=== PATIENT | female | born 1975 | race Caucasian/White ===

== ENCOUNTER → 2017-07-28 | Outpatient (CLI) | payer OTHER ==
--- NOTE | 2017-07-28 16:08 | US ---
EXAMINATION TYPE: US thyroid st tissue head/neck DATE OF EXAM: 07/28/2017 COMPARISON: NONE CLINICAL HISTORY: E04.1 thyroid nodule. Patient on thyroid medication, hypothyroidism, doctor felt charlee mp left neck GLAND SIZE: Right Lobe: 3.6 x 1.4 x 1.4 cm Overall Parenchyma: heterogenous Left Lobe: 4.2 x 1.2 x 1.5 cm Overall Parenchyma: heterogeneous Isthmus Thickness: 0.3 cm NODULES RIGHT: # of nodules measured on right: 0 LEFT: # of nodules measured on left: 1 1. 2.0 X 1.1 x 1.9 cm hypoechoic complex cystic nodule at the lower pole with well-defined margins; . This nodule is wider than tall and shows no intranodular vascularity. Prior size: no prior ISTHMUS: # of nodules measured in the isthmus: 0 IMPRESSION: Complex cystic area inferior left thyroid lobe, difficult to distinguish if directly connected to thy roid. CT neck could be performed for further evaluation and localization.
== END | disposition home or self-care (01) ==
LOC: RADUSWWP 15:30
PROVIDERS: ATTEND Obstetrics & Gynecology
DX: E07.9 Disorder of thyroid, unspecified (principal)
CPT/HCPCS: 36415; 76536; 84439; 84443

== ENCOUNTER → 2017-08-17 | Outpatient (CLI) | payer BC ==
--- NOTE | 2017-08-17 19:53 | CT ---
EXAMINATION TYPE: CT soft tissue neck w con DATE OF EXAM: 08/17/2017 7:42 PM COMPARISON: NONE HISTORY: Patient has no complaints at time of study. Follow up study to abnormal US showing possible thyroid nodules. CT DLP: 420.6 mGycm Automated exposure control for dose reduction was used. CONTRAST: CT scan of the neck is performed following with IV Contrast, patient injected with 100 mL of Omnipaqu e 300. Axial images are obtained, coronal and sagittal reformatted images are reviewed. FINDINGS: There is normal branching pattern of the great vessels on the aortic arch. There is normal contrast opacification of carotid arteries and jugular veins. There is arterial flow in the vertebral arteries. There is no evidence of a pharyngeal mass. Epiglottis appears normal. Tonsils and adenoids are within normal limits. Submandibular salivary glands appear normal. Parotid glands are symmetric. There are anterior and posterior triangle cervical lymph nodes which measure less than 1 cm. There is a 19 x 15 mm thin-walled cyst that appears to be arising from the lower pole of the left thy roid lobe. The thyroid gland is otherwise unremarkable. IMPRESSION: Low-density oval-shaped mass on the lower pole left thyroid lobe is consistent with a be nign cyst that is unchanged compared to ultrasound of 07/28/2017. Nonspecific anterior and posterior c ervical small lymph nodes.
== END ==
LOC: RADCTMAIN 19:22
PROVIDERS: ATTEND Surgery
DX: E07.89 Other specified disorders of thyroid (principal)
CPT/HCPCS: 70491; Q9967

== ENCOUNTER → 2017-08-27 | Outpatient (CLI) | payer BC ==
[2017-08-27 11:00] LABS: Basophils # (A) 0.1 k/uL (0-0.2); Basophils % (A) 1 %; CHCM 32.6; Eosinophils # (A) 0.4 k/uL (0-0.7); Eosinophils % (A) 4 %; HCT 38.6 % (34.0-46.0); HDW 2.42; HGB 13.8 gm/dL (11.4-16.0); Luc # (Auto) 0.35; Luc % (Auto) 4; Lymphocytes # (A) 1.8 k/uL (1.0-4.8); Lymphocytes % (A) 21 %; MCH 34.2 pg (25.0-35.0); MCHC 35.8 g/dL (31.0-37.0); MCV 95.5 fL (80.0-100.0); Mean Platelet Volume 7.5; Monocytes # (A) 0.8 k/uL (0-1.0); Monocytes % (A) 9 %; Neutrophils # (A) 5.1 k/uL (1.3-7.7); Neutrophils % (A) 61 %; RBC 4.04 m/uL (3.80-5.40); RDW 15.3 % (11.5-15.5); WBC 8.4 k/uL (3.8-10.6); WBC (Perox) 7.94
[2017-08-27 11:19] LABS: Anion Gap 6 mmol/L; Blood Urea Nitrogen 14 mg/dL (7-17); Calcium 8.7 mg/dL (8.4-10.2); Carbon Dioxide 25 mmol/L (22-30); Chloride 106 mmol/L (98-107); Glucose 98 mg/dL (74-99); Non-African American GFR(MDRD) >60 (>60 ml/min/1.73 sqM); Potassium 4.4 mmol/L (3.5-5.1); Sodium 137 mmol/L (137-145)
== END | disposition home or self-care (01) ==
LOC: LABPAT 10:32
PROVIDERS: ATTEND Obstetrics & Gynecology
DX: Z01.812 Encounter for preprocedural laboratory examination (principal)
CPT/HCPCS: 36415; 80048; 85025; 86850; 86900; 86901

== ENCOUNTER 2017-09-22 11:58 | Day surgery (SDC) | payer BC ==
[2017-09-22 12:51] VITALS: BP 146/77; PULSE 83; RESP 20; TEMP 97.8
[2017-09-22] MEDS ORDERED: ALPRAZolam 0.5 MG TAB PO STA (12:54)
--- NOTE | 2017-09-22 16:09 | US ---
EXAMINATION TYPE: US FNA thyroid DATE OF EXAM: 09/22/2017 COMPARISON: NONE HISTORY: Thyroid nodule, E04.1 Maximal barrier technique was utilized. Ultrasound using sterile technique. The skin overlying the no dule was localized with ultrasound and the overlying skin prepped and draped. Lidocaine used for loca l anesthesia. 1 pass with a 23-gauge needle made into the cystic nodule under ultrasound guidance. As pirated specimen consisting of 1 to 2 cc of straw-colored fluid and submitted to cytology. Following the procedure hemostasis achieved. No immediate complication IMPRESSION: Status post ultrasound-guided fine-needle aspiration of thyroid nodule, pathology pending .
== END 2017-09-22 14:30 | disposition home or self-care (01) ==
LOC: RADPROMAIN 11:58
PROVIDERS: ATTEND Surgery
DX: E04.1 Nontoxic single thyroid nodule (principal)
CPT/HCPCS: 10022; 76942; 88305

== ENCOUNTER 2021-09-09 10:34 | Day surgery (SDC) | payer BC, OTHER ==
[2021-09-07 17:52] VITALS: BMI 41.3
[~2021-09-09 10:34] MED LIST: LACTATED RINGERS 1,000 ML IV SCH; LIDOCAINE 1% (10MG/ML) FOR IV START INTRADERMA PRN
[2021-09-09 11:13] VITALS: TEMP 99.1
[2021-09-09] MEDS ORDERED: PROPOFOL 10 MG/ML 20 ML VIAL IV ONE (12:06)
[2021-09-09] MEDS ORDERED: LIDOCAINE 1% INJ 10MG/ML (20 ML MDV) ONE (12:06)
--- NOTE | 2021-09-09 12:26 | P.PCN ---
Date of Procedure: 09/09/21 Procedure(s) Performed: Brief history: Patient is a pleasant 45-year-old white female scheduled for an elective upper endoscopy as well as colonoscopy as a part of evaluation of iron deficiency anemia. She denies any GI symptoms. Procedure performed: Esophagogastroduodenoscopy with biopsy Colonoscopy and polypectomy Preoperative diagnosis: Iron deficiency anemia. Anesthesia: MAC Procedure: After informed consent was obtained from the patient was brought into the endoscopy unit and IV sedation was administered by anesthesia under continuous monitoring. Initially upper endoscopy was done. The Olympus GF 160 video endoscope was inserted inserted into the mouth and esophagus intubated without a ny difficulty and was gradually advanced into the stomach and duodenum and carefully examined. The bulb and second part of the duodenum appeared normal. The scope was then withdrawn into the stomach adequately insufflated with air and upon careful examination the antrum had mild patchy area of centimeter prepyloric area which was biopsied. Mucosa of the body, cardia and fundus appeared normal. The scope was then withdrawn into the esophagus. The GE junction was located at 36 cm to the incisors. small sliding type hiatal hernia noted the GE junction appeared slightly irregular with a 2 mm tongue of Bautista's appearing mucosa proximal to the GE junction which was biopsied.Rest of the esophagus appeared normal. Patient tolerated the procedure well. At this time the patient continued to remain sedation. Initial digital rectal examination was normal. Olympus CF 160 video colonoscope was then inserted into the rectum and gradually advanced to the cecum without any difficulty. Careful examination was performed as the scope was gradually being withdrawn. The prep was excellent. The cecum, ascending colon, transverse colon, descending colon, sigmoid colon and rectum appeared normal. and distal rectum there was a 5 mm sessile polyp that was removed by snare polypectomy. Retroflexion was performed in the rectum and no lesions were noted. Patient tolerated the procedure well. Impression: 1. Upper endoscopy revealed small hiatal hernia, mild antral gastritis but no evidence of esophagitis or peptic ulcer disease. 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 Colonoscopy revealed 5-6 mm distal rectal polyp status post polypectomy Recommendations: Findings of this examination were discussed with the patient as well as her family. She was advised to follow with the biopsy results. if the biopsy reveals adenoma she can have a repeat colonoscopy in 5 years
[2021-09-09 12:37] VITALS: RESP 16
[2021-09-09 12:55] VITALS: BP 125/74; PULSE 79
== END 2021-09-09 13:05 | disposition home or self-care (01) ==
LOC: ORWHC2ENDO 10:34
PROVIDERS: ATTEND Internal Medicine Gastroenterology
DX: K31.9 Disease of stomach and duodenum, unspecified (principal); K21.00 Gastro-esophageal reflux disease with esophagitis, without bleeding; D50.9 Iron deficiency anemia, unspecified; K22.70 Barrett's esophagus without dysplasia; K44.9 Diaphragmatic hernia without obstruction or gangrene; E07.9 Disorder of thyroid, unspecified; F41.9 Anxiety disorder, unspecified; R51.9 Headache, unspecified; K14.1 Geographic tongue; Z79.1 Long term (current) use of non-steroidal anti-inflammatories (NSAID); Z98.51 Tubal ligation status; Z90.49 Acquired absence of other specified parts of digestive tract; Z98.890 Other specified postprocedural states; Z97.2 Presence of dental prosthetic device (complete) (partial); Z79.890 Hormone replacement therapy; Z79.899 Other long term (current) drug therapy; Z91.09 Other allergy status, other than to drugs and biological substances
CPT/HCPCS: 88305; 45385; 43239; J2001; J2704

== ENCOUNTER → 2022-08-02 | Outpatient (CLI) | payer BC ==
[2022-08-02 11:16] VITALS: BMI 44.8
== END ==
LOC: BARWHC3 08:49
PROVIDERS: ATTEND Surgery Plastic and Reconstructive Surgery
DX: E66.01 Morbid (severe) obesity due to excess calories (principal); Z68.41 Body mass index [BMI] 40.0-44.9, adult
CPT/HCPCS: 97804

== ENCOUNTER → 2022-09-08 | Outpatient (CLI) | payer BC ==
[2022-09-08 18:12] LABS: Basophils # (A) 0.04 X 10*3/uL (0.00-0.10); Basophils % (A) 0.5 %; Eosinophils % (A) 3.6 %; HCT 40.2 % (37.2-46.3); HGB 13.5 g/dL (12.0-15.0); Immature Grans, Automated 0.5 %; Lymphocytes # (A) 1.35 X 10*3/uL (0.90-5.00); Lymphocytes % (A) 16.2 %; MCH 29.9 pg (27.0-32.0); MCHC 33.6 g/dL (32.0-37.0); MCV 89.1 fL (80.0-97.0); Mean Platelet Volume 10.3 fL (9.5-12.2); Monocytes # (A) 0.54 X 10*3/uL (0.20-1.00); Monocytes % (A) 6.5 %; NRBC Per 100 WBC 0 /100 WBCS (0.0-0.0); Neutrophils # (A) 6.05 X 10*3/uL (1.80-7.70); Neutrophils % (A) 72.7 %; Platelet Count 313 X 10*3/uL (140-440); RBC 4.51 X 10*6/uL (4.10-5.20); RDW 12.7 % (11.5-14.5); WBC 8.32 X 10*3/uL (4.50-10.00)
[2022-09-08 18:52] LABS: African American GFR (CKD) 119.6 (60.0-200.0); Albumin 3.9 g/dL (3.8-4.9); Albumin/Globulin Ratio 1.34 (1.60-3.17); Anion Gap 11.4 mmol/L (10.00-18.00); BUN/Creat Ratio 16.14 Ratio (12.00-20.00); Blood Urea Nitrogen 11.3 mg/dL (9.0-27.0); Calcium 8.7 mg/dL (8.7-10.3); Carbon Dioxide 22.6 mmol/L (20.0-27.5); Globulin 2.9 g/dL (1.6-3.3); Non-African American GFR(CKD) 103.2 (60.0-200.0); Potassium 4.1 mmol/L (3.5-5.5); Total Bilirubin 0.3 mg/dL (0.30-1.20); Total Protein 6.8 g/dL (6.2-8.2)
== END | disposition home or self-care (01) ==
LOC: LABPAT 11:06
PROVIDERS: ATTEND Surgery Plastic and Reconstructive Surgery
DX: Z01.812 Encounter for preprocedural laboratory examination (principal)
CPT/HCPCS: 36415; 80053; 85025

== ENCOUNTER 2022-09-13 10:20 | Inpatient (IN) | payer BC ==
--- NOTE | 2022-09-13 05:24 | P.GSHP ---
History of Present Illness H&P Date: 09/13/22 CHIEF COMPLAINT: Paraesophageal hiatal hernia with gastroesophageal reflux disease. HISTORY OF PRESENT ILLNESS: The patient is a 47-year-old female who presents with paraesophageal hiatal hernia. She has completed upper endoscopy workup. Now she presents for surgical intervention. PAST MEDICAL HISTORY: Please see list. PAST SURGICAL HISTORY: Please see list. MEDICATIONS: Please see list. ALLERGIES: Please see list. SOCIAL HISTORY: No illicit drug use FAMILY HISTORY: No reports of Crohn disease or ulcerative colitis. REVIEW OF ORGAN SYSTEMS: CONSTITUTIONAL: No reports of fevers or chills. GI: Denies any blood in stools or constipation. PHYSICAL EXAM: VITAL SIGNS: Stable GENERAL: Well-developed pleasant and in no acute distress. HEENT: No scleral icterus. Extraocular movements grossly intact. Moist buccal mucosa. NECK: Supple without lymphadenopathy. CHEST: Unlabored respirations. Equal bilateral excursions. CARDIOVASCULAR: Regular rate and rhythm. Distal 2+ pulses. ABDOMEN: Soft, nondistended. No peritoneal signs. MUSCULOSKELETAL: No clubbing, cyanosis, or edema. SKIN: Well-perfused. Good skin turgor. ASSESSMENT: 1. Diaphragmatic paraesophageal hiatal hernia with severe gastroesophageal reflux disease. PLAN: 1. Recommend proceeding with a robotic paraesophageal hiatal hernia with possible mesh. 2. Benefits and risks of surgical intervention was discussed including possibility of open technique. 3. Inpatient hospitalization recommended of 2 nights 4. DVT prophylaxis. 5. Antibiotic prophylaxis. 6. She has also completed a very low caloric high-protein diet to address underlying hepatomegaly. 7. Non narcotic pain management including abdominal wall block described 8. Blood sugar glucose described. 9. Weight loss management described. Past Medical History Past Medical History: GERD/Reflux, Thyroid Disorder Additional Past Medical History / Comment(s): headaches, elevated BP-no rx, had recent stress test & echo, awaiting results, varicose vein, hx thrombosi s/superficial vein left leg March 2015, ANEMIA History of Any Multi-Drug Resistant Organisms: None Reported Past Surgical History: Cholecystectomy, Hysterectomy, Uterine Ablation Additional Past Surgical History / Comment(s): uterine ablation 2014 Past Anesthesia/Blood Transfusion Reactions: Postoperative Nausea & Vomiting (PONV) Smoking Status: Former smoker - Past Family History Father Family Medical History: AFIB, Deep Vein Thrombosis (DVT) Mother Family Medical History: Cancer Medications and Allergies Home Medications Medication Instructions Recorded Confirmed Type Levothyroxine Sodium [Synthroid] 200 mcg PO DAILY 03/09/15 09/09/22 History Ibuprofen [Motrin] 800 mg PO Q8HR PRN 10/20/15 09/09/22 History Omeprazole [PriLOSEC] 20 mg PO HS 08/29/17 09/09/22 History Desvenlafaxine Succinate [Pristiq] 100 mg PO HS 09/07/21 09/09/22 History Ferrous Sulfate [Feosol] 325 mg PO HS 09/07/21 09/09/22 History Ergocalciferol [Vitamin D2 (1250 50,000 unit PO WEEKLY 06/15/22 09/09/22 History Mcg = 14145 Iu)] Vitamin A 2,400 mcg PO DAILY 08/18/22 09/09/22 History Allergies Allergy/AdvReac Type Severity Reaction Status Date / Time adhesive tape AdvReac red skin Verified 09/09/22 10:19
[~2022-09-13 10:20] MED LIST changes: +ACETAMINOPHEN TAB 500 MG TAB PO PRN; +CHLORHEXIDINE GLUCONATE 15 ML CUP MUCOUS MEM PRN; +DEXAMETHASONE SOD PHOSPHATE 4 MG/ML 1 ML VIAL IV ONE; +ENOXAPARIN 40 MG/0.4 ML SYRINGE SQ PRN; +GABAPENTIN 300 MG CAP PO PRN; +HYDROmorphone 0.5 MG/0.5 ML SYRINGE IVP PRN; -LIDOCAINE 1% (10MG/ML) FOR IV START INTRADERMA PRN; +MELOXICAM 7.5 MG TAB PO PRN; +MIDAZOLAM 2 MG/2 ML VIAL IV PRN; +ONDANSETRON 4 MG/2 ML VIAL IVP ONE; +PANTOPRAZOLE 40 MG/10 ML VIAL IVP PRN; +SCOPOLAMINE 1 MG/72 HR PATCH TRANSDERM ONE; +SCOPOLAMINE 1 MG/72 HR PATCH TRANSDERM PRN; +ceFAZolin 3 GM in SODIUM CHLORIDE 0.9% 100 ML IVPB PRN
[2022-09-13] MEDS ORDERED: LACTATED RINGERS 1,000 ML IV ONE ×2 (12:29→15:01)
[2022-09-13] MEDS ORDERED: NEOSTIGMINE 1 MG/ML 10 ML VIAL ONE (13:25)
[2022-09-13] MEDS ORDERED: LIDOCAINE 2% INJ 20 MG/ML (2 ML VIAL) ONE (13:25)
[2022-09-13] MEDS ORDERED: HYDROmorphone (PF) 1 MG/ML ONE (13:25)
[2022-09-13] MEDS ORDERED: SUCCINYLCHOLINE CHLORIDE 200 MG/10 ML VIAL IV ONE (13:25)
[2022-09-13] MEDS ORDERED: ROCURONIUM 10 MG/ML (5 ML VIAL) IV ONE (13:25)
[2022-09-13] MEDS ORDERED: PROPOFOL 10 MG/ML 20 ML VIAL IV ONE (13:25)
[2022-09-13] MEDS ORDERED: fentaNYL (PF) 50 MCG/ML 2 ML AMP ONE (13:25)
[2022-09-13] MEDS ORDERED: GLYCOPYRROLATE 0.2 MG/ML 2 ML VIAL ONE (13:25)
[2022-09-13] MEDS ORDERED: LIDOCAINE 1%-EPI 1:100,000 20 ML VIAL SQ ONE (13:55)
[2022-09-13] MEDS ORDERED: diphenhydrAMINE 50 MG/ML 1 ML VIAL IVP PRN (15:48)
[2022-09-13] MEDS ORDERED: HYDROmorphone 1 MG/ML 1 ML SYRINGE IVP PRN (15:48)
[2022-09-13] MEDS ORDERED: NALOXONE 0.4 MG/ML 1 ML VIAL IV PRN (15:48)
[2022-09-13] MEDS ORDERED: SODIUM CHLORIDE 0.9% 1,000 ML IV ONE (15:53)
--- NOTE | 2022-09-13 15:58 | P.OP ---
Date of Procedure: 09/13/22 Description of Procedure: SURGEON: MANJIT GARCIA MD PREOPERATIVE DIAGNOSES: 1. Symptomatic paraesophageal diaphragmatic hiatal hernia. 2. Gastroesophageal reflux disease. 3. Hypothyroidism 4. Dysphagia 5. Depressive disorder 6. Generalized anxiety disorder 7. History of deep venous thrombosis. 8. Anemia 9. Osteoarthritis of the knee 10. Morbid obesity due to excess calories 11. Body mass index 43.0 to 42.0 POSTOPERATIVE DIAGNOSES: 1. Paraesophageal midline diaphragmatic hernia, 3 cm, with incarceration. 2. Gastroesophageal reflux disease. 3. Hypothyroidism 4. Dysphagia 5. Depressive disorder 6. Generalized anxiety disorder 7. History of deep venous thrombosis. 8. Anemia 9. Osteoarthritis of the knee 10. Morbid obesity due to excess calories 11. 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 Robotic-assisted da Nir Xi laparoscopic repair of incarcerated paraesophageal hiatal hernia, 4 x 3 cm, with [place] Biopatch A 8 x 8 cm. 2. Excision of mediastinal mass, 4 x 5 cm 3. Intraoperative esophagogastroduodenoscopy 4. Placement of 56-Arabic bougie for esophageal dysmotility ANESTHESIA: General with local anesthetic. ESTIMATED BLOOD LOSS: 5 mL SPECIMENS REMOVED: None COMPLICATIONS: None. Condition: stable Disposition: floor FINDINGS: 1. Midline incarcerated paraesophageal hiatal hernia 4 x 3 cm 2. Intraoperative upper endoscopy confirms complete closure of hiatal hernia from Hill grade 3 to Hill grade 1 3. Intraesophageal length over 2 cm 4. Large mediastinal mass of distal esophagus resected, 4 x 5 cm INDICATIONS: The patient is a 47-year-old female who presents with gastroesophageal reflux disease poorly controlled despite medications, and a symptomatic diaphragmatic hiatal hernia. Preoperative workup including upper endoscopy demonstrated a sliding hiatal hernia. The patient completed an esophageal manometry. Given the severity of symptoms, the patient had elected for surgical intervention. Benefits and risks including bleeding, infection, recurrence, dysphagia, injury to the lung, need for further surgery was described at length. Informed consent was obtained. DESCRIPTION: The patient was brought into the operating room and placed in supine position. Preoperatively the patient had received heparin subcutaneously for DVT prophylaxis. After general induction, the abdomen was prepped and draped in standard sterile fashion. The patient had previously voided prior to coming to the operating room. Ioban draping was placed along the abdomen. A timeout protocol was confirmed with the surgical team, for which the patient's name, procedure to be performed including DVT prophylaxis with bilateral SCDs, and preoperative antibiotics were also confirmed. A robotic da Nir Xi system was prepped and primed. At 12 cm from the xiphoid to just below the umbilicus, proposed port sites were marked with indelible marker along the left axillary line, left mid-clavicular line with each ports were marked 10 cm from each other. A 5 mm 0 degrees laparoscopic trocar entry was performed along the left upper quadrant. The abdomen was insufflated to 15 mmHg pressure was tolerated well. Diagnostic laparoscopy demonstrated no injury to bowel, viscera, or mesentery. No injury had occurred to the small bowel or viscera. The liver was smooth consistent with two-week high-protein low-carb diet. Previous trochar sites from cholecystectomy were used. Next, one 8 mm robotic port was placed along the right upper abdomen. An 8-mm port was were placed along the right lateral lateral abdominal wall. The camera 8-mm port was maintained along the epigastrium. Another 12 mm port was placed along the left upper abdominal wall after exchanging the 5 mm port. Please note that the ports were placed at least 20 cm away from the target anatomy. Care was taken to check that each robotic arm were safely away from collision with the bed or the patient. At the epigastrium, a medium sized Shannon liver retractor was placed under direct visualization with the [employer] placed under the right shoulder of the patient. All robotic arms were used. The patient was repositioned in reverse Trendelenburg position at 21-degrees after lowering the bed. The robot was docked above the right side of the patient. Using a grasper for arm 3, a grasper for arm 1, including vessel sealer for arm 2, the robotic system was docked and primed as described. Instruments were i nterchanged by the reference assistant. I had sat at the console. The gastrohepatic ligament was cleaved using a vessel sealer. Next, the phrenoesophageal ligament was mobilized and the distal esophagus was mobilized circumferentially. The left and right crura was identified. Circumferentially, the hernia sac was excised and brought into the peritoneal cavity. Moderate dissection into the mediastinum was performed to release the esophagus into the abdominal cavity. The paraesophageal hiatal hernia sac was also incised and divided from the esophagus. A large mediastinal tumor was excised 4 x 5 cm. The mass was removed using an Endo Catch bag. Care was taken to avoid any gastrotomy. The measured defect was consistent with 4 cm axial length and 3 cm in width. After dissection, the distal esophagus of 2+ cm was brought into the abdominal cavity. Once the hiatus and crura was dissected, 2-0 VLOC nonabsorbable suture was placed to reapproximate the diaphragmatic hiatus posteriorly. To buttress the repair, a [place] Biopatch A was prepared along the back table and cut in half of a rubio-hole fashion as to reinforce the repair as an underlay. The mesh was placed along the crural repair and tagged using horizontal mattress sutures using 2-0 VLOC. I went to the head of the bed to perform intraoperative esophagogastroduodenoscopy and placement of a 56Fr bougie. The bougie was passed along the posterior oropharynx into the stomach to address pre-existing esophageal dysmotility for 2 minutes then removed. An Olympus gastroscope was passed through posterior oropharynx. Retroflexion of the scope confirmed a Hill grade 1 lower esophageal valve. 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 The stomach had been desufflated. No evidence of leaks were found of the esophagus or stomach. The GI tract with desufflated This concluded the endoscopic portion of the case. The robot was undocked from the patient. I re-scrubbed into the case. All instruments and pneumoperitoneum and specimens were evacuated from the abdominal cavity. Incisions were reapproximated using 4-0 Monocryl in an interrupted subcuticular fashion. Liquid glue was applied to the skin. Local anesthetic was infiltrated in all wounds for postop analgesia. At the end of the procedure, needle, sponge, and instrument count was verified correct by the surgical dental assistant. The patient had tolerated the procedure well and was taken to the postanesthesia unit in stable condition.
[2022-09-13] MEDS: KETOROLAC 15 MG/ML 1 ML VIAL IVP SCH ×2 (17:39→23:56)
[2022-09-13] MEDS: ONDANSETRON 4 MG/2 ML VIAL IVP SCH ×2 (17:39→23:57)
[2022-09-13] MEDS: DEXAMETHASONE SOD PHOSPHATE 4 MG/ML 1 ML VIAL IVP SCH ×2 (17:40→23:58)
[2022-09-13] MEDS: ACETAMINOPHEN IV (For NPO) 1,000 MG in EMPTY BAG 1 BAG IVPB SCH ×2 (17:40→23:55)
[2022-09-13] MEDS: 0.9% NACL WITH KCL 20 MEQ/L 1,000 ML IV SCH (17:40)
[2022-09-13] MEDS: SIMETHICONE 40 MG/0.6 ML DROPS 2,000 MG/30 ML BOTTLE PO SCH ×2 (17:54→23:56)
[2022-09-13] MEDS: HYOSCYAMINE ORAL DROPS 1.875 MG/15 ML BOTTLE PO SCH ×2 (17:55→23:56)
[2022-09-13] MEDS ORDERED: DEXAMETHASONE SOD PHOSPHATE 10 MG/ML 1 ML VIAL IVP ONE (20:00)
[2022-09-13] MEDS: ALBUTEROL NEBULIZED 2.5 MG/3 ML INHALATION SCH ×2 (20:05→20:12)
[2022-09-13] MEDS ORDERED: ceFAZolin 3 GM in SODIUM CHLORIDE 0.9% 100 ML IVPB SCH (21:00)
[2022-09-14] MEDS: 0.9% NACL WITH KCL 20 MEQ/L 1,000 ML IV SCH (01:41)
[2022-09-14] MEDS: ACETAMINOPHEN IV (For NPO) 1,000 MG in EMPTY BAG 1 BAG IVPB SCH ×2 (05:54→12:08)
[2022-09-14] MEDS: HYOSCYAMINE ORAL DROPS 1.875 MG/15 ML BOTTLE PO SCH ×2 (05:56→12:07)
[2022-09-14] MEDS: SIMETHICONE 40 MG/0.6 ML DROPS 2,000 MG/30 ML BOTTLE PO SCH ×2 (05:56→12:08)
[2022-09-14] MEDS: ONDANSETRON 4 MG/2 ML VIAL IVP SCH ×2 (05:57→12:07)
[2022-09-14] MEDS: KETOROLAC 15 MG/ML 1 ML VIAL IVP SCH ×2 (05:57→12:07)
[2022-09-14] MEDS: DEXAMETHASONE SOD PHOSPHATE 4 MG/ML 1 ML VIAL IVP SCH ×2 (05:57→12:07)
[2022-09-14] MEDS ORDERED: LEVOTHYROXINE 100 MCG TAB PO SCH (06:30)
[2022-09-14] MEDS: ALBUTEROL NEBULIZED 2.5 MG/3 ML INHALATION SCH ×3 (07:17→15:51)
[2022-09-14] MEDS ORDERED: 0.9% NACL WITH KCL 20 MEQ/L 1,000 ML IV SCH (08:00)
[2022-09-14] MEDS ORDERED: PANTOPRAZOLE 40 MG/10 ML VIAL IV SCH (09:00)
[2022-09-14] MEDS ORDERED: ENOXAPARIN 40 MG/0.4 ML SYRINGE SQ SCH (09:00)
[2022-09-14 10:56] LABS: Basophils # (A) 0 X 10*3/uL (0.00-0.10); Basophils % (A) 0 %; Eosinophils # (A) 0 X 10*3/uL (0.04-0.35); Eosinophils % (A) 0 %; HCT 42.9 % (37.2-46.3); HGB 13.9 g/dL (12.0-15.0); Immature Grans, Automated 0.5 %; Lymphocytes # (A) 0.68 X 10*3/uL (0.90-5.00); Lymphocytes % (A) 7.8 %; MCH 29.4 pg (27.0-32.0); MCHC 32.4 g/dL (32.0-37.0); MCV 90.9 fL (80.0-97.0); Monocytes # (A) 0.12 X 10*3/uL (0.20-1.00); Monocytes % (A) 1.4 %; NRBC Per 100 WBC 0 /100 WBCS (0.0-0.0); Neutrophils # (A) 7.86 X 10*3/uL (1.80-7.70); Neutrophils % (A) 90.3 %; Platelet Count 291 X 10*3/uL (140-440); RBC 4.72 X 10*6/uL (4.10-5.20); RDW 12.9 % (11.5-14.5)
[2022-09-14 11:28] LABS: African American GFR (CKD) 122.2 (60.0-200.0); Anion Gap 13.3 mmol/L (10.00-18.00); Blood Urea Nitrogen 9.5 mg/dL (9.0-27.0); Calcium 8.8 mg/dL (8.7-10.3); Carbon Dioxide 18.8 mmol/L (20.0-27.5); Non-African American GFR(CKD) 105.4 (60.0-200.0); Phosphorus 3.2 mg/dL (2.4-5.1); Potassium 4.8 mmol/L (3.5-5.5)
[2022-09-14 11:45] VITALS: BMI 42.0
--- NOTE | 2022-09-14 11:58 | FL ---
EXAMINATION TYPE: FL UGI DATE OF EXAM: 09/14/2022 COMPARISON: None HISTORY: Postop hiatal hernia repair TECHNIQUE: A single contrast UGI study is performed. FINDINGS: Contrast passes from the distal esophagus through the Felix fundoplication with moderately severe hesitancy. No extravasation of contrast is evident. No free air is noted during this examination. Overhead radiographs were obtained which are unremarkable. IMPRESSIONS: 1. Status post Felix fundoplication. No suspicious extravasation of contrast is evident. There is mo derately severe hesitancy passing through the gastroesophageal junction.
[2022-09-14 14:49] VITALS: BP 135/84; PULSE 72; RESP 18; TEMP 97.8
--- NOTE | 2022-09-14 15:47 | P.DS ---
Providers Date of admission: 09/13/22 11:25 Expected date of discharge: 09/14/22 Attending physician: Magalis Rubi Primary care physician: Gennaro She [facility] Hospital Course: Discharge diagnosis 1. Paraesophageal midline diaphragmatic hernia, 3 cm, with incarceration. 2. Gastroesophageal reflux disease. 3. Hypothyroidism 4. Dysphagia 5. Depressive disorder 6. Generalized anxiety disorder 7. History of deep venous thrombosis. 8. Anemia 9. Osteoarthritis of the knee 10. Morbid obesity due to excess calories 11. 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 Patient is status post Robotic-assisted da Nir Xi laparoscopic repair of incarcerated paraesophageal hiatal hernia with mesh and excision of mediastinal mass. Patient reports her pain is controlled. She is tolerating diet. Her upper GI shows no suspicious extravasation of contrast is evident. There is moderately severe hesitancy passing through the GE junction. Patient denies any difficulty swallowing. Patient is afebrile. She is up and ambulat ing. She is having flatus. She is stable for discharge. Physician Animal Pathologist note has been reviewed by physician. Signing provider agrees with the documented findings, assessment, and plan of care. Patient Condition at Discharge: Stable Plan - Discharge Summary Discharge Rx Participant: Yes New Discharge Prescriptions: New bisacodyL [Dulcolax] 5 mg PO DAILY PRN #10 tab PRN Reason: Constipation Simethicone 40 mg/0.6 ml Drops [Mylicon Drops] 40 mg PO PCHS PRN #30 ml PRN Reason: Gas Omeprazole [PriLOSEC] 40 mg PO DAILY #30 cap Acetaminophen Tab [Tylenol] 1,000 mg PO Q6HR PRN #30 tablet PRN Reason: Pain Ondansetron Odt [Zofran Odt] 4 mg PO Q8HR PRN #9 tab PRN Reason: Nausea Continue Levothyroxine Sodium [Synthroid] 200 mcg PO DAILY Ibuprofen [Motrin] 800 mg PO Q8HR PRN PRN Reason: Pain Desvenlafaxine Succinate [Pristiq] 100 mg PO HS Discontinued Omeprazole [PriLOSEC] 20 mg PO HS Ferrous Sulfate [Feosol] 325 mg PO HS Ergocalciferol [Vitamin D2 (1250 Mcg = 50926 Iu)] 50,000 unit PO WEEKLY Vitamin A 2,400 mcg PO DAILY Discharge Medication List Levothyroxine Sodium [Synthroid] 200 mcg PO DAILY 03/09/15 [History] Ibuprofen [Motrin] 800 mg PO Q8HR PRN 10/20/15 [History] Desvenlafaxine Succinate [Pristiq] 100 mg PO HS 09/07/21 [History] Acetaminophen Tab [Tylenol] 1,000 mg PO Q6HR PRN #30 tablet 09/14/22 [Rx] Omeprazole [PriLOSEC] 40 mg PO DAILY #30 cap 09/14/22 [Rx] Ondansetron Odt [Zofran Odt] 4 mg PO Q8HR PRN #9 tab 09/14/22 [Rx] Simethicone 40 mg/0.6 ml Drops [Mylicon Drops] 40 mg PO PCHS PRN #30 ml 09/14/22 [Rx] bisacodyL [Dulcolax] 5 mg PO DAILY PRN #10 tab 09/14/22 [Rx] Follow up Appointment(s)/Referral(s): Magalis Rubi MD [STAFF PHYSICIAN] - 09/23/22 11:30 am Activity/Diet/Wound Care/Special Instructions: Wear abdominal binder at all times for comfort. No lifting over 4 pounds in 4 weeks You May shower. No bath tub soaks for two weeks Use Tylenol and ibuprofen scheduled for the next 24-48 hours for best pain relief. Use ice along incisions for the today to prevent swelling. Continue on bariatric liquid diet. No straws or carbonated beverages Hold on taking any vitamins until seen by surgeon Discharge Disposition: HOME SELF-CARE
[2022-09-15] MEDS ORDERED: bisacodyL 5 MG TABLET.DR PO PRN (08:00)
--- NOTE | 2022-09-21 15:41 | CDI ---
Documentation Clarification Form Date: 09/21/2022 01:38:00 PM From: Catarina Katz Admit Date: 09/13/2022 11:25:00 AM Patient Name: Uma Dorsey Visit Number: [id number] Discharge Date: 09/14/2022 05:28:00 PM ATTENTION: The Clinical Documentation Specialists (CDI) and [facility] Coding Staff appreciate your assistance in clarifying documentation. Please respond to the clarification below the line at the bottom and electronically sign. The CDI & [facility] Coding staff will review the response and follow-up if needed. Please note: Queries are made part of the Legal Health Record. If you have any questions, please contact the author of this message via ITS. Dr. Magalis Rubi The final diagnosis of the pathology report states "Reactive lymph node and benign fibroadipose tissue, compatible with lipoma". Coding guidelines do not allow coding professionals to code based on pathology results; therefore, clarification is requested. History/risk factors: paraesophageal diaphragmatic hiatal hernia, GERD, Hypothyroidism, Dysphagia, Distal esophageal mediastinal mass Clinical Indicators: path report- mediastinal lipoma Treatment: Excision of mediastinal mass with robotic assisted laparoscopic hiatal hernia repair Please clarify if you agree with the pathology report diagnosis of Mediastinal lipoma: [ X ] Yes [ ] No [ ] Other (please specify) [ ] Unable to determine KM 09/22/[address] [facility]
== END 2022-09-14 17:28 | disposition home or self-care (01) | DRG 327 ==
LOC: 2ORMAIN 11:25 → 4SSUR 15:22
PROVIDERS: ADMIT Surgery Plastic and Reconstructive Surgery; ATTEND Surgery Plastic and Reconstructive Surgery
PROC: 8E0W4CZ Robotic Assisted Procedure of Trunk Region, Percutaneous Endoscopic Approach (ICD-10-PCS; principal; 2022-09-13 12:50)
PROC: 0WBC4ZZ Excision of Mediastinum, Percutaneous Endoscopic Approach (ICD-10-PCS; principal; 2022-09-13 12:50)
PROC: 0D738ZZ Dilation of Lower Esophagus, Via Natural or Artificial Opening Endoscopic (ICD-10-PCS; principal; 2022-09-13 12:50)
PROC: 0BUT4JZ Supplement Diaphragm with Synthetic Substitute, Percutaneous Endoscopic Approach (ICD-10-PCS; principal; 2022-09-13 12:50)
DX: K44.0 Diaphragmatic hernia with obstruction, without gangrene (principal); Z68.41 Body mass index [BMI] 40.0-44.9, adult; K21.9 Gastro-esophageal reflux disease without esophagitis; I10 Essential (primary) hypertension; I83.90 Asymptomatic varicose veins of unspecified lower extremity; D64.9 Anemia, unspecified; D17.79 Benign lipomatous neoplasm of other sites; K31.4 Gastric diverticulum; E03.9 Hypothyroidism, unspecified; F32.A Depression, unspecified; F41.1 Generalized anxiety disorder; M17.10 Unilateral primary osteoarthritis, unspecified knee; E66.01 Morbid (severe) obesity due to excess calories; K22.4 Dyskinesia of esophagus; Z86.718 Personal history of other venous thrombosis and embolism; Z87.891 Personal history of nicotine dependence; Z79.890 Hormone replacement therapy; Z79.899 Other long term (current) drug therapy; Z91.048 Other nonmedicinal substance allergy status
CPT/HCPCS: 74240; 80051; 82310; 82565; 83735; 84100; 84520; 85025; 86850; 86900; 86901; 88304

== ENCOUNTER → 2022-09-16 | Outpatient (CLI) | payer BC ==
[~2022-09-16] MED LIST changes: -ACETAMINOPHEN TAB 500 MG TAB PO PRN; -CHLORHEXIDINE GLUCONATE 15 ML CUP MUCOUS MEM PRN; +DEXAMETHASONE SOD PHOSPHATE 10 MG/ML 1 ML VIAL IM STA; -DEXAMETHASONE SOD PHOSPHATE 4 MG/ML 1 ML VIAL IV ONE; -ENOXAPARIN 40 MG/0.4 ML SYRINGE SQ PRN; -GABAPENTIN 300 MG CAP PO PRN; -HYDROmorphone 0.5 MG/0.5 ML SYRINGE IVP PRN; -LACTATED RINGERS 1,000 ML IV SCH; -MELOXICAM 7.5 MG TAB PO PRN; -MIDAZOLAM 2 MG/2 ML VIAL IV PRN; -ONDANSETRON 4 MG/2 ML VIAL IVP ONE; -PANTOPRAZOLE 40 MG/10 ML VIAL IVP PRN; -SCOPOLAMINE 1 MG/72 HR PATCH TRANSDERM ONE; -SCOPOLAMINE 1 MG/72 HR PATCH TRANSDERM PRN; -ceFAZolin 3 GM in SODIUM CHLORIDE 0.9% 100 ML IVPB PRN
--- NOTE | 2022-09-16 12:36 | P.BASOAP ---
Subjective Progress Note Date: 09/16/22 Clinically doing well. Reports expected dysphagia due to swelling. Decadron ordered. Follow-up in one week described. Also follow bariatric diet postop Assessment/Plan Plan: Date: Initial Weight: Initial BMI: Current Weight: Current BMI: Type of Surgery: Total Volume in Band: Previous Volume: Volume Removed: Volume Added: Band Size:
[2022-09-16 12:52] VITALS: BP 147/90; PULSE 76; RESP 16; TEMP 98.5
== END ==
LOC: BARWHC3 11:35
PROVIDERS: ATTEND Surgery Plastic and Reconstructive Surgery
DX: E66.01 Morbid (severe) obesity due to excess calories (principal); Z91.048 Other nonmedicinal substance allergy status; F17.200 Nicotine dependence, unspecified, uncomplicated
CPT/HCPCS: 99211; 96372; J1100

== ENCOUNTER → 2022-09-22 | Outpatient (CLI) | payer BC ==
[2022-09-22 13:15] VITALS: BP 113/83; PULSE 92; TEMP 98.5; BMI 41.3
--- NOTE | 2022-09-22 14:16 | P.BASOAP ---
Subjective Progress Note Date: 09/22/22 She dysphagia. She is status post hiatal hernia. On Oct 17, re-check for GERD prior to sleeve or bypass. She has dysphagia. Recommend upper endoscopy with dilation. Trial of soft diet on POD 12 advised. No more GERD. Continue bariatric diet. Objective - Vital Signs Vital signs: Vital Signs Temp 98.5 F 09/22/22 13:09 Pulse 92 09/22/22 13:09 Resp BP 113/83 09/22/22 13:09 Pulse Ox FiO2 Intake & Output 09/21/22 09/22/22 09/22/22 18:59 06:59 18:59 Weight 126.099 kg Assessment/Plan Plan: Date: 09/22/22 Initial Weight: Initial BMI: Current Weight: 126.099 kg Current BMI: 41.3 Type of Surgery: Total Volume in Band: Previous Volume: Volume Removed: Volume Added: Band Size:
--- NOTE | 2022-10-08 12:20 | P.PN ---
Progress Note - Text Progress Note Date: 10/08/22 To Whom It May Concern: Uma Dorsey is under my general surgical care. She may return to work without restrictions 10/18/22 pending clearance. Regards, Magalis Rubi M.D., FACS
--- NOTE | 2022-10-11 08:08 | P.PN ---
Progress Note - Text Progress Note Date: 10/11/22 To Whom It May Concern: Uma Dorsey is under my general surgical care. She may return to work without restrictions 10/11/22. Regards, Magalis Rubi M.D., FACS
== END ==
LOC: BARWHC3 12:53
PROVIDERS: ATTEND Surgery Plastic and Reconstructive Surgery
DX: Z48.815 Encounter for surgical aftercare following surgery on the digestive system (principal); E66.01 Morbid (severe) obesity due to excess calories; Z68.41 Body mass index [BMI] 40.0-44.9, adult; F17.200 Nicotine dependence, unspecified, uncomplicated; Z91.048 Other nonmedicinal substance allergy status
CPT/HCPCS: 99211

== ENCOUNTER → 2023-02-14 | Outpatient (CLI) | payer BC ==
[2023-02-14 16:51] LABS: African American GFR (CKD) 100.7 (60.0-200.0); Albumin 4.2 g/dL (3.8-4.9); Albumin/Globulin Ratio 1.32 (1.60-3.17); BUN/Creat Ratio 18.71 Ratio (12.00-20.00); Blood Urea Nitrogen 15.1 mg/dL (9.0-27.0); Calcium 9.4 mg/dL (8.7-10.3); Carbon Dioxide 23.3 mmol/L (20.0-27.5); Globulin 3.2 g/dL (1.6-3.3); Non-African American GFR(CKD) 86.9 (60.0-200.0); Potassium 4.6 mmol/L (3.5-5.5); Total Bilirubin 0.3 mg/dL (0.30-1.20); Total Protein 7.4 g/dL (6.2-8.2)
[2023-02-14 18:23] LABS: Basophils # (A) 0.07 X 10*3/uL (0.00-0.10); Basophils % (A) 0.7 %; Eosinophils # (A) 0.49 X 10*3/uL (0.04-0.35); HGB 15.3 g/dL (12.0-15.0); Immature Grans, Automated 0.6 %; Lymphocytes # (A) 1.27 X 10*3/uL (0.90-5.00); MCH 30.3 pg (27.0-32.0); MCHC 33.3 g/dL (32.0-37.0); MCV 91.1 fL (80.0-97.0); Mean Platelet Volume 10.7 fL (9.5-12.2); Monocytes # (A) 0.56 X 10*3/uL (0.20-1.00); Monocytes % (A) 5.7 %; NRBC Per 100 WBC 0 /100 WBCS (0.0-0.0); Neutrophils # (A) 7.32 X 10*3/uL (1.80-7.70); Platelet Count 339 X 10*3/uL (140-440); RBC 5.05 X 10*6/uL (4.10-5.20); RDW 12.7 % (11.5-14.5); WBC 9.77 X 10*3/uL (4.50-10.00)
== END | disposition home or self-care (01) ==
LOC: LABWHC1 09:19
PROVIDERS: ATTEND Surgery Plastic and Reconstructive Surgery
DX: Z01.812 Encounter for preprocedural laboratory examination (principal)
CPT/HCPCS: 36415; 80053; 85025

== ENCOUNTER 2023-02-21 09:42 | Observation (INO) | payer BC ==
--- NOTE | 2023-02-21 09:21 | P.GSHP ---
History of Present Illness H&P Date: 02/21/23 CHIEF COMPLAINT: Morbid obesity. HISTORY OF PRESENT ILLNESS: Uma Dorsey is a 46-year-old female who comes with lifelong morbid obesity. She sees Dr. Simmons for anemia. She had a hiatal hernia repair. Clinically she was doing well resolution of reflux disease. She presents today for sleeve gastrectomy. At height of 5 feet 8.75 inches, her ideal body weight is 163 pounds. Her highest weight is 288 pounds, body mass index 43.0. She comes in 288 pounds. Her body mass index is 43.0. She is 125 pounds overweight. PAST MEDICAL HISTORY: 1. Morbid obesity due to excess calories 2. Body mass index 43.0 3. Hypothyroidism 4. Gastroesophageal reflux disease 5. Depressive disorder 6. Generalized anxiety disorder 7. Deep venous thrombosis. 8. Anemia 9. Osteoarthritis of the knee PAST SURGICAL HISTORY: 1. Uterine ablation 2. Cholecystectomy 3. Hysterectomy HOME MEDICATIONS: ALLERGIES: SOCIAL HISTORY: Has tobacco use. FAMILY HISTORY: No family history of ulcerative colitis disease or Crohn's disease. Family history of morbid obesity. No lupus in the family. No reports of stomach or esophageal cancer. Family history of DVTs. REVIEW OF ORGAN SYSTEMS: CONSTITUTIONAL: At height of 5 feet 8.75 inches, her ideal body weight is 163 pounds. Her highest weight is 288 pounds, body mass index 43.0. She comes in 288 pounds. Her body mass index is 43.0. She is 125 pounds overweight. HEENT: Denies any active troubles with vision or hearing. ENDOCRINE: Denies diabetes. Has hypothyroidism. CARDIOVASCULAR: Denies past reports of palpitations or heart attacks or chest pain. RESPIRATORY: Has daytime somnolence and snores. GASTROINTESTINAL: Denies any bright red blood per rectum. No diarrhea. No constipation. Has gastroesophageal reflux disease. GENITOURINARY: Denies bladder urgency. No recent blood in urine MUSCULOSKELETAL: Has lower back pain and joint pain. NEURO: Denies migraines. No seizure disorders. PSYCH: Has depression. No suicidal ideation. Has anxiety. RHEUMATOLOGIC: No lupus. No rheumatoid arthritis. HEMATOLOGIC: Denies any abnormal bleeding or bruising. Has past history of DVTs. SKIN: No rash. No skin cancer. PHYSICAL EXAM: VITAL SIGNS: Height 5 foot 8.75 inches, weight 288 pounds. BMI 43.0 GENERAL: Well-developed in no acute distress. HEENT: No scleral icterus. Extraocular movements grossly intact. Hears conversational speech. No nasal drainage. NECK: Supple without lymphadenopathy. CHEST: Nonlabored respirations with equal bilateral excursions. CARDIOVASCULAR: Regular rate and regular rhythm. Distal 2+ pulses. ABDOMEN: Obese, soft, nontender, nondistended. MUSCULOSKELETAL: No clubbing, cyanosis. NEURO: No focal or lateralizing signs. Cranial nerves 2 through 12 grossly within normal limits. PSYCH: Appropriate affect. Alert and oriented to person, place and time. SKIN: Good skin turgor. Well perfused. ASSESSMENT: 1. Morbid obesity due to excess calories 2. Body mass index 43.0 3. Hypothyroidism 4. Gastroesophageal reflux disease 5. Depressive disorder 6. Generalized anxiety disorder 7. Deep venous thrombosis. 8. Anemia 9. Osteoarthritis of the knee PLAN: 1. Bariatric options between a sleeve, band and a Crystal-en-Y gastric bypass were reviewed in detail. The patient elected for a sleeve gastrectomy. Robotic assisted approach described. 2. The [place] [facility] Data was also reviewed with benefits and risks as described. 3. An 8 page second-generation bariatric consent form was reviewed in detail including potential of bleeding, infection, leaks, adequate weight loss, nutritional deficiencies which the patient demonstrated understanding of the risks. 4. A 2 week high-protein low caloric 800 kcal diet described to address hepatomegaly. 5. Preoperative labs including complete metabolic panel and CBC with type and screen recommended. 6. DVT prophylaxis per [place] [facility]. 7. Antibiotic prophylaxis. 8. Inpatient hospitalization anticipated for more than 2 nights. 9. All questions and concerns were addressed with the patient. 10. The patient is at elevated risk for perioperative complications with sleep apnea and hypertensive heart disease. 11. Overall, patient has expressed understanding of bariatric care including postoperative diet and commitment of lifestyle. Patient should benefit from surgical intervention for correction of morbid obesity. 12. She is elevated risk due to pre-existing comorbid conditions and prior gastric surgery. Past Medical History Past Medical History: Deep Vein Thrombosis (DVT), Skin Disorder, Thyroid Disorder Additional Past Medical History / Comment(s): Headaches, varicose vein, hx thrombosis/DVT left leg March 2015 superficial vein and also had phlebitis, ANEMIA, pre cancerous colon polyp removed, psoriasis as a teen only. History of Any Multi-Drug Resistant Organisms: None Reported Past Surgical History: Section, Cholecystectomy, Hernia Repair, Hysterectomy, Uterine Ablation Additional Past Surgical History / Comment(s): Hiatal Hernia Repair 09/13/22, colonoscopies/polypectomies Past Anesthesia/Blood Transfusion Reactions: Postoperative Nausea & Vomiting (PONV) Additional Past Anesthesia/Blood Transfusion Reaction / Comment(s): Pt has never received blood. Smoking Status: Former smoker - Past Family History Father Family Medical History: AFIB, Deep Vein Thrombosis (DVT) Mother Family Medical History: Cancer Additional Family Medical History / Comment(s): Very rare skin cancer, alive. Medications and Allergies Home Medications Medication Instructions Recorded Confirmed Type Levothyroxine Sodium [Synthroid] 200 mcg PO QAM 03/09/15 02/17/23 History Ibuprofen [Motrin Ib] 200 mg PO DAILY PRN 01/12/23 02/17/23 History Iron 18 mg PO QAM 01/12/23 02/17/23 History bisacodyL [Dulcolax] 5 mg PO HS PRN 02/17/23 02/17/23 History Allergies Allergy/AdvReac Type Severity Reaction Status Date / Time adhesive tape AdvReac red skin Verified 02/17/23 13:47
[~2023-02-21 09:42] MED LIST changes: +CHLORHEXIDINE GLUCONATE 15 ML CUP MUCOUS MEM PRN; -DEXAMETHASONE SOD PHOSPHATE 10 MG/ML 1 ML VIAL IM STA; +DEXAMETHASONE SOD PHOSPHATE 4 MG/ML 1 ML VIAL IV ONE; +ENOXAPARIN 40 MG/0.4 ML SYRINGE SQ PRN; +HYDROmorphone 0.5 MG/0.5 ML SYRINGE IVP PRN; +MIDAZOLAM 2 MG/2 ML VIAL IV PRN; +ONDANSETRON 4 MG/2 ML VIAL IVP ONE; +PANTOPRAZOLE 40 MG/10 ML VIAL IVP PRN; +SCOPOLAMINE 1 MG/72 HR PATCH TRANSDERM ONE; +ceFAZolin 3 GM in SODIUM CHLORIDE 0.9% 100 ML IVPB PRN
[2023-02-21] MEDS: LACTATED RINGERS 1,000 ML IV SCH (10:08)
[2023-02-21] MEDS ORDERED: MIDAZOLAM 2 MG/2 ML VIAL ONE (10:58)
[2023-02-21] MEDS ORDERED: SUCCINYLCHOLINE CHLORIDE 200 MG/10 ML VIAL IV ONE (10:58)
[2023-02-21] MEDS ORDERED: LIDOCAINE 2% INJ 20 MG/ML (2 ML VIAL) ONE (10:58)
[2023-02-21] MEDS ORDERED: NEOSTIGMINE 1 MG/ML 10 ML VIAL ONE (10:58)
[2023-02-21] MEDS ORDERED: GLYCOPYRROLATE 0.2 MG/ML 2 ML VIAL ONE (10:58)
[2023-02-21] MEDS ORDERED: ROCURONIUM 10 MG/ML (5 ML VIAL) IV ONE (10:58)
[2023-02-21] MEDS ORDERED: PROPOFOL 10 MG/ML 20 ML VIAL IV ONE (10:58)
[2023-02-21] MEDS ORDERED: HYDROmorphone (PF) 1 MG/ML ONE (10:58)
[2023-02-21] MEDS ORDERED: fentaNYL (PF) 50 MCG/ML 2 ML AMP ONE (10:58)
[2023-02-21] MEDS ORDERED: BUPIVACAIN-EPI 0.25%-1:200,000 30 ML VIAL SQ ONE (11:23)
[2023-02-21] MEDS ORDERED: ONDANSETRON 4 MG/2 ML VIAL IVP ONE (13:05)
--- NOTE | 2023-02-21 13:09 | P.OP ---
Date of Procedure: 02/21/23 Description of Procedure: SURGEON: MANJIT GARCIA MD PREOPERATIVE DIAGNOSES: 1. Morbid obesity due to excess calories 2. Body mass index 43.0 3. Hypothyroidism 4. Gastroesophageal reflux disease 5. Depressive disorder 6. Generalized anxiety disorder 7. Deep venous thrombosis. 8. Anemia 9. Osteoarthritis of the knee POSTOPERATIVE DIAGNOSES: 1. Morbid obesity due to excess calories 2. Body mass index 43.0 3. Hypothyroidism 4. Gastroesophageal reflux disease 5. Depressive disorder 6. Generalized anxiety disorder 7. Deep venous thrombosis. 8. Anemia 9. Osteoarthritis of the knee OPERATION: 1. Robotic assisted daVinci Xi laparoscopic sleeve gastrectomy with 40-Nepali bougie, multiport. 2. Intraoperative esophagogastroduodenoscopy. ANESTHESIA: Gen. local anesthetic ESTIMATED BLOOD LOSS: 5 mL SPECIMENS REMOVED: Sleeve gastrectomy COMPLICATIONS: None. FINDINGS: 1. Negative intraoperative esophagogastrojejunoscopy leak test. 2. No hepatomegaly and no large hiatus hernia. 3. Total of 7 staplers used including 2 - 60 mm green robot yaquelin and 5 - 60 mm blue robot loads used to create the gastric sleeve. 4. Sleeve gastrectomy, 28 x 5 cm 5. Previous incisions from hiatal hernia repair use for procedure 6. Presence of hepatomegaly with fatty liver disease 7. Adhesions along hiatus from prior hiatal hernia repair INDICATIONS: Uma Dorsey is a 46-year-old female who comes with lifelong morbid obesity. She is looking into the sleeve gastrectomy. She has comorbidities including osteoarthritis of the knees and back. At height of 5 feet 8.75 inches, her ideal body weight is 163 pounds. Her highest weight is 288 pounds, body mass index 43.0. She comes in 288 pounds. Her body mass index is 43.0. She is 125 pounds overweight. All surgical options for morbid obesity had been described using the [place] [facility]ariat[facility] collaborative comorbidity resolution including complication risk score. A second-generation bariatric consent form was described in detail including the possibility of protein malnutrition, leaks, gastric stricture, venous thrombosis, gastroesophageal reflux disease, need for further surgery for which she demonstrated understanding. Benefits and risks of the procedure were described at length. Informed consent was obtained. DESCRIPTION: The patient was brought into the operating room theater. Preoperatively she had received Lovenox subcutaneously for DVT prophylaxis. Additionally she had Peridex oral solution as an oral decontaminant. After general induction, the abdomen was prepped and draped in standard sterile fashion. An Ioban draping was placed along the abdomen. A robotic da Nir Xi system was prepped and primed. At 15 cm from the xiphoid, proposed port sites were marked with indelible marker along the anterior axillary line bilaterally, mid axillary line bilaterally with each ports were marked 10 to 15 cm from each other. The robotic stapler port was marked for the right midclavicular line. A 5 mm 0 degrees laparoscopic trocar entry was performed along the left upper quadrant. The abdomen was insufflated to 15 mmHg pressure was tolerated well. Diagnostic laparoscopy demonstrated no injury to bowel, viscera, or mesentery. No evidence of large hiatus hernia was identified. The liver edge was sharp consistent with 2 week low-carb high-protein diet. A 8 mm port was placed along the left upper abdominal wall after exchanging the 5 mm port. A separate 8 mm port was placed along the left lateral abdominal wall. Please note that the ports were placed at least 20 cm away from the target anatomy. Care was taken to check each robotic arms were safely away from collision with the bed or the patient. At the epigastrium, a medium sized Shannon liver retractor was placed under direct visualization with the Iron Bass Fisher placed under the right shoulder of the patient. Next, 12-mm robot stapler port was placed along the right upper quadrant. The camera 8-mm port was maintained along the epigastrium. The patient was repositioned in reverse Trendelenburg position at 21-degrees after lowering the bed. The robot was docked along the left side of the patient. Using a grasper for arm 4, a vessel sealer for arm 3, including grasper for arm 1, the robotic system was docked and primed as described. Instruments were interchanged by the assistant case manager for stapler loads. The camera was placed at 30- degrees down. I had sat at the console. The pylorus was identified and 6 cm proximally along the greater curvature of the stomach, the short gastrics were mobilized upwards to the angle of His using a vessel sealer. Hemostasis was excellent during this portion of the procedure. Next, the upper pole of the stomach was adherent to the left dalila, which was gently dissected free using atraumatic grasper. I went to the head of the bed and placed 40-Nepali blunt bougie into the stomach. The bougie was readjusted by the nurse production boring machine operator. Robotic stapler black load 60 mm 2 followed by green 60 mm x 5 loads were used to create the sleeve. Initial firing was across the antrum of the stomach towards the angle of His. The staple line was linear without corkscrewing. The space from the angularis incisura of the sleeve was approximately 4 cm. I then went to the head of the bed to perform the intraoperative esophagogastroduodenoscopy leak test. The bougie was withdrawn. The upper pole of the stomach was bathed using normal saline solution. The scope was withdrawn with careful inspection along the staple line for which no leaks were found along the entire length. Additionally,the sleeve was completely hemostatic without any encroachment along the angularis incisura. Its topology was a soft "J". No stricture was encountered upon placement of the scope. The GI tract was desufflated. The patient tolerated this portion of the procedure well. The scope was completely withdrawn. The robot was undocked. I then rescrubbed into case, whereby the irrigation fluid was aspirated from the abdominal cavity. Tisseel fibrin sealant was placed along the entire staple length. Once dried the Shannon liver retractor was removed. Attention was now brought to removal of the specimen. The distal end of the sleeve gastrectomy specimen was brought out through the 12 mm port at the left upper quadrant. The specimen was gently removed en total. No contamination had occurred during this process. All instruments and pneumoperitoneum including irrigation fluid was removed from the abdominal cavity. The 12 mm port site was closed using 0-Vicryl and Lloyd Quijano and irrigated with diluted hydrogen peroxide. The final incisions were closed using subcuticular interrupted suture of 4-0 Monocryl. Exofin was applied to the skin once the skin had been cleansed. OptiFoam dressing was placed along the stomach extraction site. The sleeve specimen was measured and checked also for leaks which none were found. At the end of the procedure, needle, sponge, and instrument count was verified correct by the surgical tech. The patient was taken to the postanesthesia care unit in stable condition. She had tolerated the procedure well. Intraoperative films and findings were reviewed with the patient's family.
[2023-02-21] MEDS ORDERED: NALOXONE 0.4 MG/ML 1 ML VIAL IV PRN ×2 (13:33→13:37)
[2023-02-21] MEDS ORDERED: diphenhydrAMINE 50 MG/ML 1 ML VIAL IVP PRN (13:33)
[2023-02-21] MEDS ORDERED: HYDROmorphone 1 MG/ML 1 ML SYRINGE IVP PRN (13:33)
[2023-02-21] MEDS ORDERED: LACTATED RINGERS 1,000 ML IV ONE (14:20)
[2023-02-21] MEDS: 0.9% NACL WITH KCL 20 MEQ/L 1,000 ML IV SCH ×2 (16:30→21:01)
[2023-02-21] MEDS: fentaNYL PCA 500 MCG/50 ML BAG IV SCH (16:30)
[2023-02-21] MEDS: ONDANSETRON 4 MG/2 ML VIAL IVP SCH ×2 (17:22→23:43)
[2023-02-21] MEDS: ACETAMINOPHEN IV (For NPO) 1,000 MG/100 ML VIAL IV SCH ×2 (17:22→23:43)
[2023-02-21] MEDS: SIMETHICONE 40 MG/0.6 ML DROPS 2,000 MG/30 ML BOTTLE PO SCH ×2 (17:23→23:42)
[2023-02-21] MEDS: HYOSCYAMINE ORAL DROPS 1.875 MG/15 ML BOTTLE PO SCH ×2 (17:23→23:43)
[2023-02-21] MEDS: ALBUTEROL NEBULIZED 2.5 MG/3 ML INHALATION SCH ×2 (17:25→21:09)
[2023-02-21] MEDS ORDERED: ceFAZolin 3 GM in SODIUM CHLORIDE 0.9% 100 ML IVPB SCH (19:00)
[2023-02-21] MEDS ORDERED: DEXAMETHASONE SOD PHOSPHATE 10 MG/ML 1 ML VIAL IVP ONE (20:00)
[2023-02-21] MEDS: PANTOPRAZOLE 40 MG/10 ML VIAL IV SCH (21:01)
[2023-02-21] MEDS: DEXAMETHASONE SOD PHOSPHATE 4 MG/ML 1 ML VIAL IVP SCH (23:43)
[2023-02-22] MEDS: ACETAMINOPHEN IV (For NPO) 1,000 MG/100 ML VIAL IV SCH ×2 (05:07→12:43)
[2023-02-22] MEDS: DEXAMETHASONE SOD PHOSPHATE 4 MG/ML 1 ML VIAL IVP SCH ×2 (05:08→12:42)
[2023-02-22] MEDS: 0.9% NACL WITH KCL 20 MEQ/L 1,000 ML IV SCH (05:08)
[2023-02-22] MEDS: ONDANSETRON 4 MG/2 ML VIAL IVP SCH ×2 (05:08→12:43)
[2023-02-22] MEDS: SIMETHICONE 40 MG/0.6 ML DROPS 2,000 MG/30 ML BOTTLE PO SCH ×2 (06:45→12:57)
[2023-02-22] MEDS: HYOSCYAMINE ORAL DROPS 1.875 MG/15 ML BOTTLE PO SCH ×2 (06:45→12:57)
[2023-02-22 06:50] LABS: Basophils % (A) 0 %; Eosinophils % (A) 0 %; HCT 43.5 % (34.0-46.0); Lymphocytes # (A) 0.7 k/uL (1.0-4.8); Lymphocytes % (A) 6 %; MCH 29.9 pg (25.0-35.0); MCHC 32.3 g/dL (31.0-37.0); MCV 92.6 fL (80.0-100.0); Mean Platelet Volume 8.5; Monocytes # (A) 0.8 k/uL (0-1.0); Monocytes % (A) 7 %; Neutrophils # (A) 9.5 k/uL (1.3-7.7); Neutrophils % (A) 85 %; Platelet Count 286 k/uL (150-450); RBC 4.69 m/uL (3.80-5.40); RDW 12.8 % (11.5-15.5); WBC 11.2 k/uL (3.8-10.6)
[2023-02-22 07:01] LABS: African American GFR (CKD) >90 (>60 ml/min/1.73 sqM); Anion Gap 12 mmol/L; Blood Urea Nitrogen 9 mg/dL (7-17); Calcium 8.5 mg/dL (8.4-10.2); Carbon Dioxide 18 mmol/L (22-30); Chloride 106 mmol/L (98-107); Magnesium 2.1 mg/dL (1.6-2.3); Non-African American GFR(CKD) >90 (>60 ml/min/1.73 sqM); Phosphorus 3.1 mg/dL (2.5-4.5); Sodium 136 mmol/L (137-145)
[2023-02-22 07:47] VITALS: RESP 16
[2023-02-22] MEDS ORDERED: 1: THIAMINE 100 MG, FOLIC ACID 1 MG in 0.9% NACL WITH KCL 20 MEQ/L 1,000 ML 2: 0.9% NAC IVPB SCH (08:00)
[2023-02-22] MEDS: PANTOPRAZOLE 40 MG/10 ML VIAL IV SCH (08:41)
[2023-02-22] MEDS ORDERED: MULTIVITAMINS, THERA 1 EACH TAB PO SCH (09:00)
[2023-02-22] MEDS ORDERED: ENOXAPARIN 40 MG/0.4 ML SYRINGE SQ SCH (09:00)
[2023-02-22] MEDS: LACTATED RINGERS 1,000 ML IV SCH (09:12)
[2023-02-22] MEDS: ALBUTEROL NEBULIZED 2.5 MG/3 ML INHALATION SCH ×3 (10:15→16:11)
--- NOTE | 2023-02-22 11:27 | FL ---
EXAMINATION TYPE: FL UGI DATE OF EXAM: 02/22/2023 LIMITED UGI: CLINICAL HISTORY: Morbid Obesity, history of prior Felix fundoplication surgery. Gastric sleeve barry sita yesterday. TECHNIQUE: Limited esophagram is performed utilizing 25 cc of Isovue-370. A total of 65 seconds of f luoroscopic time was utilized during procedure and 34 images obtained. COMPARISON: None. FINDINGS: The patient swallowed contrast with minimal difficulty. Esophageal peristalsis and motili ty are within normal limits. There is good flow of contrast along the diaphragmatic hiatus into prox imal stomach and than moderate delay in flow into the gastric sleeve through the proximal anastomosis . There is mild delay in flow from distal sleeve and anastomosis into pylorus and duodenal sweep. Pat ient however remains asymptomatic. There is no evidence of contrast extravasation to suggest leak. Ch olecystectomy clips are incidentally noted. IMPRESSION: Moderate obstruction at the proximal anastomosis but no increased symptoms of nausea or v omiting. No leak identified.
[2023-02-22 11:47] VITALS: BMI 41.6
[2023-02-22 12:54] VITALS: BP 145/72; PULSE 82; TEMP 98.4
--- NOTE | 2023-02-22 15:17 | P.DS ---
Providers Date of admission: 02/21/23 13:46 Expected date of discharge: 02/22/23 Attending physician: Magalis Rubi Primary care physician: Gennaro Nowak [facility] Course: Discharge diagnosis 1. Morbid obesity due to excess calories 2. Body mass index 43.0 3. Hypothyroidism 4. Gastroesophageal reflux disease 5. Depressive disorder 6. Generalized anxiety disorder 7. Deep venous thrombosis. 8. Anemia 9. Osteoarthritis of the knee 10. Moderate obstruction at the proximal anastomosis noted on upper GI 11. Leukocytosis likely reactive due to steroids Hospital course Uma Dorsey is a 46-year-old female who comes with lifelong morbid obesity. She is status post Robotic assisted daVinci Xi laparoscopic sleeve gastrectomy. Her upper GI shows moderate obstruction at the proximal anastomosis but no increased symptoms of nausea or vomiting. No leak identified. Patient is tolerating diet. She has been up and ambulating. She is afebrile. She is urinating without difficulty. Her pain is controlled. She is stable for discharge. Physician [facility] [employer] note has been reviewed by physician. Signing provider agrees with the documented findings, assessment, and plan of care. Please see additional documentation below Esophagram independently reviewed demonstrates no leak. Patient clinically asymptomatic for edema due to fluid gastrectomy. Close follow-up outpatient the bariatric center. Stable for discharge. Patient Condition at Discharge: Stable Plan - Discharge Summary Discharge Rx Participant: No New Discharge Prescriptions: New Simethicone 40 mg/0.6 ml Drops [Mylicon Drops] 40 mg PO PCHS PRN #30 ml PRN Reason: Gas Ondansetron Odt [Zofran Odt] 4 mg PO Q8HR PRN #9 tab PRN Reason: Nausea bisacodyL [Dulcolax] 5 mg PO DAILY PRN #10 tab PRN Reason: Constipation Omeprazole [PriLOSEC] 40 mg PO DAILY #30 cap Acetaminophen Tab [Tylenol] 1,000 mg PO Q6HR PRN #30 tablet PRN Reason: Pain Continue Levothyroxine Sodium [Synthroid] 200 mcg PO QAM Discontinued Ibuprofen [Motrin Ib] 200 mg PO DAILY PRN PRN Reason: Pain Iron 18 mg PO QAM bisacodyL [Dulcolax] 5 mg PO HS PRN PRN Reason: Constipation Discharge Medication List Levothyroxine Sodium [Synthroid] 200 mcg PO QAM 05/03/15 [History] Acetaminophen Tab [Tylenol] 1,000 mg PO Q6HR PRN #30 tablet 02/22/23 [Rx] Omeprazole [PriLOSEC] 40 mg PO DAILY #30 cap 02/22/23 [Rx] Ondansetron Odt [Zofran Odt] 4 mg PO Q8HR PRN #9 tab 02/22/23 [Rx] Simethicone 40 mg/0.6 ml Drops [Mylicon Drops] 40 mg PO PCHS PRN #30 ml 02/22/23 [Rx] bisacodyL [Dulcolax] 5 mg PO DAILY PRN #10 tab 02/22/23 [Rx] Follow up [facility]ment(s[facility]Ref[facility] [place] [facility] [place] [facility] 9:00 am Patient Instructions/Handouts: Laparoscopic Sleeve Gastrectomy (DC) Activity/Diet/Wound Care/Special Instructions: Liquid diet only for 2 weeks No lifting over 4 pounds in 4 weeks, May Shower. No soaking in bath tubs for 2 weeks Please notify your surgeon if you develop nausea and vomiting including new onset of abdominal pain. Continue to use incentive spirometry to prevent pneumonias. Please continue to ambulate at home to prevent blood clots in legs. Follow-up at the bariatric center. May shower. Dressings to be discontinued by surgeon in the office. Drink 64 oz of fluid daily. Start protein shakes on . Notify bariatric center for temp over 101.0, increased pain, drainage from incisions. No straws or carbonated beverages. Liquid diet only. Sugar content should be less than 6 g to avoid dumping syndrome. Take MOM for constipation. CRUSH, OPEN, OR CUT TABLETS LARGER THAN A SIZE OF A TIC TAC No straws or carbonated beverages Discharge Disposition: HOME SELF-CARE
[2023-02-22] MEDS: fentaNYL PCA 500 MCG/50 ML BAG IV SCH (16:53)
== END 2023-02-22 17:23 | disposition home or self-care (01) ==
LOC: OR 09:42 → 4SSUR 13:00 → OR 13:46 → 4SSUR 13:46 → UNDODISOB 02-22 16:30
PROVIDERS: ADMIT Surgery Plastic and Reconstructive Surgery; ATTEND Surgery Plastic and Reconstructive Surgery
DX: E66.01 Morbid (severe) obesity due to excess calories (principal); Z68.41 Body mass index [BMI] 40.0-44.9, adult; K21.9 Gastro-esophageal reflux disease without esophagitis; E03.9 Hypothyroidism, unspecified; F32.A Depression, unspecified; F41.1 Generalized anxiety disorder; Z86.718 Personal history of other venous thrombosis and embolism; D64.9 Anemia, unspecified; M17.9 Osteoarthritis of knee, unspecified; Z98.890 Other specified postprocedural states; Z90.49 Acquired absence of other specified parts of digestive tract; Z90.710 Acquired absence of both cervix and uterus; I83.90 Asymptomatic varicose veins of unspecified lower extremity; Z86.010 Personal history of colon polyps; Z87.891 Personal history of nicotine dependence; Z82.49 Family history of ischemic heart disease and other diseases of the circulatory system; Z80.8 Family history of malignant neoplasm of other organs or systems; Z79.890 Hormone replacement therapy; Z79.899 Other long term (current) drug therapy; Z91.09 Other allergy status, other than to drugs and biological substances
CPT/HCPCS: 94640; 94760 ×2; 97161; 97165; 86900; 86901; 80051; 82310; 82565; 83735; 84100; 84520; 85025; 86850; 88342; 88307; 74240; 43775; G0378; C1762; J2250; J0330; J1100 ×3; J2710; J3411; J0690; J2405 ×2; J1650 ×2; J3010 ×2; J1170 ×2; J0131 ×2; J2704; C9113 ×2; Q9967; J2001

== ENCOUNTER → 2023-02-25 | Outpatient (CLI) | payer BC ==
[2023-02-25 09:59] VITALS: BP 140/84; PULSE 89; RESP 12; TEMP 98.4; BMI 40.8
== END ==
LOC: BARWHC3 08:30
PROVIDERS: ATTEND Surgery Plastic and Reconstructive Surgery
DX: E66.01 Morbid (severe) obesity due to excess calories (principal); Z68.41 Body mass index [BMI] 40.0-44.9, adult; F17.200 Nicotine dependence, unspecified, uncomplicated
CPT/HCPCS: 99211

== ENCOUNTER → 2023-03-02 | Outpatient (CLI) | payer BC ==
[2023-03-02 17:18] VITALS: BP 140/85; PULSE 90; TEMP 98.3; BMI 40.3
--- NOTE | 2023-03-02 17:45 | P.BASOAP ---
Subjective Progress Note Date: 03/02/23 SHe is post op. No GERD. No moderate pain. SHe is taking tylenol. 25 pounds weight. She journal. SHe is having bowel movements. She is doing well. Exposure to 2nd smoke. Objective - Vital Signs Vital signs: Vital Signs Temp 98.3 F 03/02/23 17:12 Pulse 90 03/02/23 17:12 Resp BP 140/85 03/02/23 17:12 Pulse Ox FiO2 Intake & Output 03/01/23 03/02/23 03/02/23 18:59 06:59 18:59 Weight 122.924 kg Assessment/Plan Plan: Date: 03/02/23 Initial Weight: Initial BMI: Current Weight: 122.924 kg Current BMI: 40.3 Type of Surgery: Total Volume in Band: Previous Volume: Volume Removed: Volume Added: Band Size:
== END ==
LOC: BARWHC3 15:57
PROVIDERS: ATTEND Surgery Plastic and Reconstructive Surgery
DX: E66.01 Morbid (severe) obesity due to excess calories (principal); Z91.048 Other nonmedicinal substance allergy status; Z68.41 Body mass index [BMI] 40.0-44.9, adult; F17.200 Nicotine dependence, unspecified, uncomplicated
CPT/HCPCS: 97802; 99211

== ENCOUNTER → 2023-03-16 | Outpatient (CLI) | payer BC ==
[2023-03-16 15:12] VITALS: BP 139/89; PULSE 93; TEMP 98; BMI 39.2
--- NOTE | 2023-03-16 15:49 | P.BASOAP ---
Subjective Progress Note Date: 03/16/23 DATE OF SERVICE: 03/16/2023 CHIEF COMPLAINT: Status post sleeve gastrecotmy HISTORY OF PRESENT ILLNESS: Uma Dorsey is a 46-year-old female status post sleeve gastrectomy, 02/21/23. She is 1 month post op. She denies heartburn or reflux. She denies abdominal pain. She is tolerating liquids. At height of 5 feet 8.75 inches, her ideal body weight is 163 pounds. Her highest weight is 288 pounds, body mass index 43.0. She comes in 270 pounds from 288 pounds, 2 weeks ago. She has lost 7 pounds in 2 weeks. Her body mass index is 39.3. Lifetime weight loss of 25 pounds. Percent lifetime weight loss of 20%. She is 100 pounds overweight. PHYSICAL EXAM: VITAL SIGNS: Height 5 foot 8.75 inches, weight 263 pounds. BMI 39.3 Vital Signs Temp 98 F 03/16/23 15:09 Pulse 93 03/16/23 15:09 Resp BP 139/89 03/16/23 15:09 Pulse Ox FiO2 GENERAL: Well-developed in no acute distress. HEENT: No scleral icterus. Extraocular movements grossly intact. Hears conversational speech. No nasal drainage. NECK: Supple without lymphadenopathy. CHEST: Nonlabored respirations with equal bilateral excursions. CARDIOVASCULAR: Regular rate and regular rhythm. Distal 2+ pulses. ABDOMEN: Obese, soft, nontender, nondistended. MUSCULOSKELETAL: No clubbing, cyanosis. NEURO: No focal or lateralizing signs. Cranial nerves 2 through 12 grossly within normal limits. PSYCH: Appropriate affect. Alert and oriented to person, place and time. SKIN: Good skin turgor. Well perfused. ASSESSMENT: 1. Morbid obesity due to excess calories 2. Body mass index 43.0 to 39.3. 3. Hypothyroidism 4. Gastroesophageal reflux disease 5. Depressive disorder 6. Generalized anxiety disorder 7. Deep venous thrombosis. 8. Anemia 9. Osteoarthritis of the knee 10. Status post sleeve gastrectomy PLAN: 1. She may return to work. 2. She is doing well. 3. Protein intake 80 g daily diet advised. 4. May start multivitamins. Objective - Vital Signs Vital signs: Vital Signs Temp 98 F 03/16/23 15:09 Pulse 93 03/16/23 15:09 Resp BP 139/89 03/16/23 15:09 Pulse Ox FiO2 Intake & Output 03/15/23 03/16/23 03/16/23 18:59 06:59 18:59 Weight 119.748 kg Assessment/Plan Plan: Date: 03/16/23 Initial Weight: Initial BMI: Current Weight: 119.748 kg Current BMI: 39.2 Type of Surgery: Total Volume in Band: Previous Volume: Volume Removed: Volume Added: Band Size:
--- NOTE | 2023-03-16 15:52 | P.PN ---
Progress Note - Text Progress Note Date: 03/16/23 To whom it may concern: Uma Dorsey is under my surgical care. She may return to work without restrictions, February 21, 2023. Regards, Magalis Rubi MD, FACS
== END ==
LOC: BARWHC3 14:54
PROVIDERS: ATTEND Surgery Plastic and Reconstructive Surgery
DX: E66.01 Morbid (severe) obesity due to excess calories (principal); K21.9 Gastro-esophageal reflux disease without esophagitis; F32.A Depression, unspecified; Z86.718 Personal history of other venous thrombosis and embolism; M17.9 Osteoarthritis of knee, unspecified; Z98.84 Bariatric surgery status; D64.9 Anemia, unspecified; F41.1 Generalized anxiety disorder; Z71.3 Dietary counseling and surveillance; Z91.048 Other nonmedicinal substance allergy status; Z79.890 Hormone replacement therapy; F17.200 Nicotine dependence, unspecified, uncomplicated
CPT/HCPCS: 97803; 99211

== ENCOUNTER 2023-06-20 08:41 | Day surgery (SDC) | payer BC ==
--- NOTE | 2023-06-20 07:45 | P.GSHP ---
History of Present Illness H&P Date: 06/20/23 CHIEF COMPLAINT: Colon screen HISTORY OF PRESENT ILLNESS: The patient is a 48-year-old female who presents for colon screen. Lower endoscopy was offered for further evaluation and management. PAST MEDICAL HISTORY: Please see list. PAST SURGICAL HISTORY: Please see list. MEDICATIONS: Please see list. ALLERGIES: Please see list. SOCIAL HISTORY: No illicit drug use FAMILY HISTORY: No reports of Crohn disease or ulcerative colitis. REVIEW OF ORGAN SYSTEMS: CONSTITUTIONAL: No reports of fevers or chills. PHYSICAL EXAM: VITAL SIGNS: Stable GENERAL: Well-developed pleasant in no acute distress. HEENT: No scleral icterus. Extraocular movements grossly intact. Moist buccal mucosa. NECK: Supple without lymphadenopathy. CHEST: Unlabored respirations. Equal bilateral excursions. CARDIOVASCULAR: Regular rate and rhythm. Distal 2+ pulses. ABDOMEN: Soft, nontender, nondistended. MUSCULOSKELETAL: No clubbing, cyanosis, or edema. ASSESSMENT: 1. Colon screen. PLAN: 1. Recommend proceeding with a lower endoscopy Past Medical History Past Medical History: Deep Vein Thrombosis (DVT), GERD/Reflux, Thyroid Disorder Additional Past Medical History / Comment(s): headaches, elevated BP-no rx, varicose vein, hx thrombosis/DVT left leg March 2015, ANEMIA, possible blood in stool History of Any Multi-Drug Resistant Organisms: None Reported Past Surgical History: Bariatric Surgery, Cholecystectomy, Hernia Repair, Hysterectomy, Uterine Ablation Additional Past Surgical History / Comment(s): uterine ablation 2014 Hiatal Hernia Repair 09/13/22, gastric sleeve 02/21/23 Past Anesthesia/Blood Transfusion Reactions: Postoperative Nausea & Vomiting (PONV) Additional Past Anesthesia/Blood Transfusion Reaction / Comment(s): Pt has never received blood. Smoking Status: Current every day smoker - Past Family History Father Family Medical History: AFIB, Deep Vein Thrombosis (DVT) Mother Family Medical History: Cancer Additional Family Medical History / Comment(s): Very rare skin cancer, alive. Medications and Allergies Home Medications Medication Instructions Recorded Confirmed Type Levothyroxine Sodium [Synthroid] 200 mcg PO QAM 03/09/15 06/14/23 History Calcium Citrate 250 mg PO DAILY 05/18/23 06/14/23 History Multivitamins, Thera [Multivitamin 1 tab PO DAILY 05/18/23 06/14/23 History (formulary)] Omeprazole [PriLOSEC] 20 mg PO DAILY 05/18/23 06/14/23 History Vitamin A 2,400 mcg PO DAILY 05/18/23 06/14/23 History Allergies Allergy/AdvReac Type Severity Reaction Status Date / Time adhesive tape AdvReac red skin Verified 06/14/23 10:25
[~2023-06-20 08:41] MED LIST changes: -CHLORHEXIDINE GLUCONATE 15 ML CUP MUCOUS MEM PRN; -DEXAMETHASONE SOD PHOSPHATE 4 MG/ML 1 ML VIAL IV ONE; -ENOXAPARIN 40 MG/0.4 ML SYRINGE SQ PRN; -HYDROmorphone 0.5 MG/0.5 ML SYRINGE IVP PRN; +LACTATED RINGERS 1,000 ML IV SCH; +LIDOCAINE 1% (10MG/ML) FOR IV START INTRADERMA PRN; -MIDAZOLAM 2 MG/2 ML VIAL IV PRN; -ONDANSETRON 4 MG/2 ML VIAL IVP ONE; -PANTOPRAZOLE 40 MG/10 ML VIAL IVP PRN; -SCOPOLAMINE 1 MG/72 HR PATCH TRANSDERM ONE; -ceFAZolin 3 GM in SODIUM CHLORIDE 0.9% 100 ML IVPB PRN
[2023-06-20 08:53] VITALS: TEMP 97
[2023-06-20] MEDS ORDERED: LACTATED RINGERS 1,000 ML IV ONE (08:55)
[2023-06-20] MEDS ORDERED: LIDOCAINE 2% INJ 20 MG/ML (2 ML VIAL) ONE (09:49)
[2023-06-20] MEDS ORDERED: PROPOFOL 10 MG/ML 20 ML VIAL IV ONE (09:49)
[2023-06-20 10:20] VITALS: RESP 16
--- NOTE | 2023-06-20 10:21 | P.PCN ---
Date of Procedure: 06/20/23 Description of Procedure: PREOPERATIVE DIAGNOSIS: Colonoscopy screening POSTOPERATIVE DIAGNOSIS: Tubular adenoma sigmoid colon Sigmoid diverticulosis Internal hemorrhoids, grade 2 OPERATION: Colonoscopy to the ileocecal valve and appendiceal orifice, cecum Colonoscopy with hot snare polypectomy SURGEON: Magalis Rubi MD. ANESTHESIA: MAC. INDICATIONS: The patient is an 48-year-old female who presents for colonoscopy screening. Benefits and risks were described and informed consent was obtained. DESCRIPTION OF PROCEDURE: The patient had undergone Sutab prep. The patient had been brought into the operating room and laid in the left lateral decubitus position. After adequate intravenous sedation, the rectum was examined with 2% lidocaine jelly. The prostate was unremarkable. External hemorrhoids were encountered. The rectal tone was within normal limits. No lesions were palpated in the rectal vault. An Olympus colonoscope was advanced until the cecum, ileocecal valve and appendiceal orifice were clearly viewed. The prep was excellent. Sigmoid diverticulosis was encountered. Colonic polyps were found and removed. No evidence of focal colitis was found. Retroflexion of the scope demonstrated grade 2 internal hemorrhoids without active bleeding or inflammation. The colon was desufflated. The patient had tolerated the procedure well. Withdrawal time was over 6 minutes. FINDINGS: Aronchick preparation quality scale 1 (1-5) Internal hemorrhoids, grade 2 External hemorrhoids, grade 2. No arteriovenous malformations. Sigmoid diverticulosis Removal of 2 polyps: - Snare polypectomy 20 cm from the anal verge x 2, 4 to 5 mm tubulovillous adenoma No focal colitis. RECOMMENDATIONS: Repeat colonoscopy in 3 years, 2025 Plan - Discharge Summary Discharge Rx Participant: No New Discharge Prescriptions: Continue Levothyroxine Sodium [Synthroid] 200 mcg PO QAM Multivitamins, Thera [Multivitamin (formulary)] 1 tab PO DAILY Vitamin A 2,400 mcg PO DAILY Omeprazole [PriLOSEC] 20 mg PO DAILY Calcium Citrate 250 mg PO DAILY Discharge Medication List Levothyroxine Sodium [Synthroid] 200 mcg PO QAM 03/09/15 [History] Calcium Citrate 250 mg PO DAILY 05/18/23 [History] Multivitamins, Thera [Multivitamin (formulary)] 1 tab PO DAILY 05/18/23 [History] Omeprazole [PriLOSEC] 20 mg PO DAILY 05/18/23 [History] Vitamin A 2,400 mcg PO DAILY 05/18/23 [History] Follow up Appointment(s)/Referral(s): Magalis Rubi MD [STAFF PHYSICIAN] - As Needed Patient Instructions/Handouts: Colorectal Polyps (GEN), Diverticulosis Diet (GEN), Diverticulosis (GEN) Activity/Diet/Wound Care/Special Instructions: Repeat colonoscopy in 3 years, 2025 Discharge Disposition: HOME SELF-CARE
[2023-06-20 10:33] VITALS: BP 139/85; PULSE 80
== END 2023-06-20 10:55 | disposition home or self-care (01) ==
LOC: ORWHC2ENDO 08:41
PROVIDERS: ATTEND Surgery Plastic and Reconstructive Surgery
DX: Z12.11 Encounter for screening for malignant neoplasm of colon (principal); K63.5 Polyp of colon; K57.30 Diverticulosis of large intestine without perforation or abscess without bleeding; K21.9 Gastro-esophageal reflux disease without esophagitis; K64.1 Second degree hemorrhoids; E07.9 Disorder of thyroid, unspecified; F17.200 Nicotine dependence, unspecified, uncomplicated; Z86.718 Personal history of other venous thrombosis and embolism; Z90.49 Acquired absence of other specified parts of digestive tract; Z79.890 Hormone replacement therapy; Z79.899 Other long term (current) drug therapy
CPT/HCPCS: 88305; 45385; J2704; J2001

== ENCOUNTER → 2023-08-31 | Outpatient (CLI) | payer BC ==
[2023-08-31 16:32] VITALS: BP 140/85; PULSE 93; TEMP 98.4; BMI 35.2
--- NOTE | 2023-08-31 16:53 | P.PN ---
Subjective Progress Note Date: 08/31/23 She is losing weight but has a stall. Protein intake is low. 154 oz advised. She is losing weight. Needs labs. Objective - Vital Signs Vital signs: Vital Signs Temp 98.4 F 08/31/23 16:13 Pulse 93 08/31/23 16:13 Resp BP 140/85 08/31/23 16:13 Pulse Ox FiO2 Intake & Output 08/30/23 08/31/23 08/31/23 18:59 06:59 18:59 Weight 107.501 kg
== END ==
LOC: BARWHC3 15:13
PROVIDERS: ATTEND Surgery Plastic and Reconstructive Surgery
DX: Z53.9 Procedure and treatment not carried out, unspecified reason (principal)
CPT/HCPCS: 99211